=== PATIENT | female | born 1960 | race Caucasian/White ===

== ENCOUNTER → 2019-02-28 | Outpatient (CLI) | payer OTHER ==
[~2019-02-28] MED LIST: LIDOCAINE 1% Multi-Dose 20 ML VIAL. INJ ONE; LIDOCAINE 1%/EPI 1:100,000 20 ML VIAL. ONE; LIDOCAINE 2%/EPI 1:100,000 20 ML VIAL. IJ ONE
--- NOTE | 2019-03-04 16:07 | PATHOLOGY ---
[facility] Accession Number: [id number] . 01 Material submitted: . PART A: LEFT BREAST TISSUE, 1:00 PART B: RIGHT BREAST TISSUE, 3:00 PART C: RIGHT BREAST TISSUE, 11:00 . 01 Clinical history: . Left breast mass, 1:00, right breast mass 3:00, right breast mass 11:00. . 02 Diagnosis: A. Breast tissue, left breast mass 1:00, needle biopsies: - INVASIVE DUCTAL CARCINOMA, HISTOLOGIC GRADE 1. SEE COMMENT. . B. Breast tissue, right breast mass 3:00, needle biopsies: - Fibrocystic changes with the following components: - Stromal fibrosis. - Duct ectasia. - Cystic change. - Chronic inflammation, focal. . C. Breast tissue, right breast mass 11:00, needle biopsies: - Fibrocystic changes with the following components: - Stromal fibrosis. - Duct ectasia. - Cystic change. - Chronic inflammation. . - Cholesterol granuloma with hemosiderin-laden macrophages. . (JPM:mml; 03/01/2019) [facility]/03/01/2019 . 02 Comment: Sections of the left breast mass at 1:00 reveal an invasive mammary carcinoma. The tumor shows fairly good tubule formation, mild nuclear pleomorphism, and no significant mitotic activity. The invasive carcinoma measures up to approximately 1.0 cm in greatest dimension on the glass slide. There are focal tumor associated calcifications. There is no lymphovascular tumor invasion. The morphologic findings are supportive of the diagnosis of an invasive ductal carcinoma, histologic grade 1. . The case is also examined by Dr. Elizabeth Lau, who concurs with the diagnosis. . Breast prognostic studies will be obtained, the results of which will be reported separately. . (JPM:mml; 03/01/2019) . 02 Electronically signed: . Nick Pham MD, Pathologist NPI- [id number] . 01 Gross description: . A. Received in formalin labeled "Griselda Keenan, left breast 1:00" are multiple cylindrical yellow-sheth soft tissue cores measuring in aggregate 2.0 x 1.5 x 0.3 cm. The specimen is submitted entirely in cassettes A1-A2. The specimen is removed from the patient at 1001, placed in formalin at 1003, and removed from formalin at 2150 on February 28, 2019. . B. Received in formalin labeled "Griselda Keenan, right breast 3:00" are multiple cylindrical yellow-sheth soft tissue cores measuring in aggregate 2.4 x 1.8 x 0.2 cm. The specimen is submitted in cassette B1. The specimen is removed from the patient at 1033, placed in formalin at 1035, and removed from formalin at 2150 on February 28, 2019. . C. Received in formalin labeled "Griselda Keenan, right breast 11:00" are multiple cylindrical yellow-sheth soft tissue cores measuring in aggregate 2.0 x 1.3 x 0.2 cm. The specimen is submitted in cassettes C1-C2. The specimen is removed from the patient at 1107, placed in formalin at 1109, and removed from formalin at 2150 on February 28, 2019. ([facility]; 02/28/2019) SY/SY . 02 Pathologist provided ICD-10: C50.912, N60.31, N60.41, N61.0 . 02 CPT . 028223, 805914, [id number] Specimen Comment: A courtesy copy of this report has been sent to Specimen Comment: [phone], . Specimen Comment: Report sent to / DR GALINDO Performed at: 01 [facility] [address], [place], [place] [id number] MD Mk Haney MD Phone: [phone] Performed at: 02 [facility] [address] [place], [place] [id number] MD Nick Pham MD Phone: [phone]
--- NOTE | 2019-03-11 09:44 | RAD ---
Ultrasound-guided left breast biopsy, 02/28/2019: History: Suspicious breast nodules The outside study demonstrated a hypoechoic nodule at the 1:00 location in the left breast approximately 3 cm in the nipple. Under local anesthesia, aseptic conditions and sonographic guidance a Suros ATEC biopsy instrument was passed into this lesion via a lateral approach. Multiple 12-gauge vacuum-assisted core samples were obtained. A biopsy marker was deposited the biopsy site. The biopsy instrument was then removed and hemostasis obtained. Ultrasound-guided right breast biopsy #1, 02/28/2019: An outside study demonstrated several suspicious nodules in the right breast. We first targeted a nodule at the 3:00 location located approximately 3 cm in the nipple. Under local anesthesia, aseptic conditions and sonographic guidance the Suros ATEC biopsy instrument was passed into this nodule via an inferior approach. Multiple 12-gauge vacuum-assisted core samples were obtained. A biopsy marker was deposited the biopsy site. The biopsy instrument was removed and hemostasis obtained. Ultrasound-guided right breast biopsy #2, 02/28/2019: We then targeted a small nodule located at the 11:00 location approximately 3 cm from the nipple. Under local anesthesia, aseptic conditions and sonographic guidance the Suros ATEC biopsy instrument was passed into this nodule via a lateral approach. Multiple 12-gauge vacuum-assisted core samples were obtained. A biopsy marker was deployed at the biopsy site. The biopsy instrument was then removed and hemostasis obtained. Outside mammograms demonstrated a vague hypoechoic focus at the 12:00 location the right breast. Today's imaging did not demonstrate a reproducible target for biopsy in that region. Two view bilateral digital mammograms were then obtained to document positions of the biopsy markers. The left biopsy marker and the medial right biopsy marker were evident. The 11 o'clock right biopsy marker was not visible, apparently due to failure of the deployment device or migration out of the breast. We therefore placed a new biopsy marker at the 11:00 location under aseptic conditions and sonographic guidance. Repeat right mammograms demonstrated the new biopsy marker in appropriate position. The patient tolerated the procedures well and left the department in good condition. Note: The subsequent pathology report for the 1:00 left breast lesion indicated invasive ductal carcinoma. The pathologic results from the 2 right breast biopsies both indicated the presence of fibrocystic change without malignancy. In view of the bilateral sonographic breast findings and the fact that a possible 12:00 right breast lesion described on the outside ultrasound study could not be redemonstrated at the time of these biopsies, MR scanning of the breasts suggested for further evaluation. Note: The findings were called to personnel in Dr. Wheeler's office at 9:39 AM on 03/11/2019.
== END | disposition home or self-care (01) ==
LOC: US 08:36
PROVIDERS: ATTEND Family Medicine
DX: C50.412 Malignant neoplasm of upper-outer quadrant of left female breast (principal); N60.31 Fibrosclerosis of right breast; N60.41 Mammary duct ectasia of right breast; N61.0 Mastitis without abscess; Z88.1 Allergy status to other antibiotic agents; Z98.890 Other specified postprocedural states; F17.210 Nicotine dependence, cigarettes, uncomplicated
CPT/HCPCS: 19083; 19084; 77066; 88305; 88361; C1713; J3490; 19085; 76942